=== PATIENT | male | born 1980 | race Caucasian/White ===

== ENCOUNTER 2023-12-24 13:42 | Emergency (ER) | payer OTHER ==
[~2023-12-24] VITALS: Ht 172.7 cm; Wt 91.0 kg
[2023-12-24 13:47] VITALS: O2SAT 99
[2023-12-24] MEDS ORDERED: POLY15DR31 EACHEYE (14:01)
[2023-12-24] MEDS ORDERED: P20 MT (14:01)
[2023-12-24] MEDS ORDERED: ACYC200C31 MT (14:01)
[2023-12-24 14:11] VITALS: BP 155/90; PULSE 98; RESP 18; TEMP 98.5
== END 2023-12-24 14:42 | disposition home or self-care (01) ==
LOC: ER 13:42
DX: G51.0 Bell's palsy (principal); E11.9 Type 2 diabetes mellitus without complications
CPT/HCPCS: 99283